=== PATIENT | female | born 1935 | race Caucasian/White ===

== ENCOUNTER → 2016-11-19 | Outpatient (CLI) | payer MEDICARE, BC ==
[2014-01-18 11:10] VITALS: BP 162/69
[~2016-11-19] MED LIST: AMLO5TAB2 PO; ASPI-482 PO; CALC-112 PO; CALC-31 PO; LEVO25TA4 PO; LOVA20TA2 PO; OMEG500C3 PO
--- NOTE | 2016-11-19 14:26 | RAD ---
Exam performed :Left ankle and foot 3 views Clinical indication: Left ankle and foot pain, status post fall one day. Date of service: 11/19/16 . .Comparison:None available Finding: AP, oblique and lateral radiographs of the ankle and foot reveal the osseous structures to be intact and well aligned. There is a old healed fracture of the left first metatarsal. There is a acute nondisplaced fracture neck of fifth metatarsal The joint spaces are well-preserved. The articular margins are smooth. Mild generalized osteopenia There is diffuse soft tissue swelling around the ankle joint. Impression: Nondisplaced fracture neck of fifth metatarsal. Diffuse soft tissue swelling.
== END | disposition home or self-care (01) ==
LOC: DXRADRC 11:15
PROVIDERS: ATTEND Physician Assistant
DX: S92.355A Nondisplaced fracture of fifth metatarsal bone, left foot, initial encounter for closed fracture (principal); M85.872 Other specified disorders of bone density and structure, left ankle and foot; W19.XXXA Unspecified fall, initial encounter; X58.XXXA Exposure to other specified factors, initial encounter; Y93.89 Activity, other specified; Y92.89 Other specified places as the place of occurrence of the external cause; Y99.8 Other external cause status
CPT/HCPCS: 73610; 73630

== ENCOUNTER → 2016-12-17 | Outpatient (CLI) | payer MEDICARE, BC ==
[2014-01-18 11:10] VITALS: BP 162/69
--- NOTE | 2016-12-17 14:54 | RAD ---
Indication follow-up fracture. AP oblique and lateral standing views of the left foot were obtained and are compared to a study 11/19/2016. Oblique, essentially nondisplaced, traumatic fracture through the shaft of the fifth metatarsal is again seen. There is not yet complete bony union but a small amount of callus is noted at the fracture site. No unexpected finding is seen. IMPRESSION: Healing fifth metatarsal fracture
== END | disposition home or self-care (01) ==
LOC: DXRADRC 09:52
PROVIDERS: ATTEND Podiatrist Foot & Ankle Surgery
DX: S92.355D Nondisplaced fracture of fifth metatarsal bone, left foot, subsequent encounter for fracture with routine healing (principal); X58.XXXD Exposure to other specified factors, subsequent encounter
CPT/HCPCS: 73630

== ENCOUNTER → 2017-01-14 | Outpatient (CLI) | payer MEDICARE, BC ==
[2014-01-18 11:10] VITALS: BP 162/69
--- NOTE | 2017-01-14 15:20 | RAD ---
Indication: Follow-up fracture. Technique: 3 views of the left foot are submitted for review. No comparison is available. Findings: There is a healing fracture of the fifth metatarsal shaft distally, callus formation noted although fracture line remains visible. An additional fracture is not identified. There is no dislocation. There is bone demineralization. There is no soft tissue swelling. Impression: Healing fifth metatarsal fracture.
== END | disposition home or self-care (01) ==
LOC: DXRADRC 09:58
PROVIDERS: ATTEND Podiatrist Foot & Ankle Surgery
DX: S92.352D Displaced fracture of fifth metatarsal bone, left foot, subsequent encounter for fracture with routine healing (principal); X58.XXXD Exposure to other specified factors, subsequent encounter
CPT/HCPCS: 73630

== ENCOUNTER → 2017-01-28 | Outpatient (CLI) | payer MEDICARE, BC ==
[2014-01-18 11:10] VITALS: BP 162/69
--- NOTE | 2017-01-28 16:32 | RAD ---
Indication follow-up fracture. AP oblique and lateral standing views of the left foot were obtained. Comparison is made to a study 2 weeks earlier. There is probable mild bony demineralization which appears similar to the previous exam. There has been some slight interval additional healing of the known fifth metatarsal fracture. There is not yet complete bony union. IMPRESSION: Healing fifth metatarsal fracture
== END | disposition home or self-care (01) ==
LOC: DXRADRC 09:54
PROVIDERS: ATTEND Nurse Practitioner Family
DX: S92.352D Displaced fracture of fifth metatarsal bone, left foot, subsequent encounter for fracture with routine healing (principal); X58.XXXD Exposure to other specified factors, subsequent encounter
CPT/HCPCS: 73630

== ENCOUNTER → 2017-02-03 | Outpatient (CLI) | payer MEDICARE ==
[2014-01-18 11:10] VITALS: BP 162/69
--- NOTE | 2017-02-03 14:30 | RAD ---
DATE: February 03, 2017. EXAM: MAMMO LATOYA SCREENING BILATERAL HISTORY: Screening study. COMPARISON: 2014 and 2015 This study was interpreted with the benefit of Computerized Aided Detection (CAD). 2-D digital mammographic views of both breasts were performed in the CC and MLO projections. 3-D digital tomosynthesis of both breasts were performed in the CC and MLO projections and reviewed on a computer workstation. FINDINGS: The breast parenchyma is heterogeneously dense. There are no dominant suspicious masses, suspicious microcalcifications or evidence of architectural distortion. IMPRESSION: No mammographic indicators for malignancy. BI-RADS CATEGORY: 1 NEGATIVE RECOMMENDED FOLLOW-UP: 12M 12 MONTH FOLLOW-UP PQRS compliance statement: Patient information was entered into a reminder system with a target due date February 04, 2018 for the next mammogram. Mammography is a sensitive method for finding small breast cancers, but it does not detect them all and is not a substitute for careful clinical examination. A negative mammogram does not negate a clinically suspicious finding and should not result in delay in biopsying a clinically suspicious abnormality. "Our facility is accredited by the [employer] Mammography Program." The patient's breast density may affect the ability of mammography to detect breast cancer. There are 4 categories of breast density, A, B, C and D. Breast density A means that most of the breast tissue is replaced with adipose tissue and therefore is not dense. Breast density B means that the breast tissue is mildly dense and scattered. Breast density C means that the breast tissue is heterogeneously dense. Breast density D means that the breast tissue is very dense. Breast densities especially C and D may decrease the sensitivity of mammography to detect breast cancer. Therefore, the patient may benefit from 3-D breast mammography (3D breast tomography) as a part of their screening mammogram. Insurance may or may not pay for this additional imaging. The patient's breast density based on today's mammogram is category C.
== END | disposition home or self-care (01) ==
LOC: MAMMO 11:11
PROVIDERS: ATTEND Nurse Practitioner Family
DX: Z12.31 Encounter for screening mammogram for malignant neoplasm of breast (principal)
CPT/HCPCS: 77063; G0202; 77067

== ENCOUNTER 2017-08-14 16:44 | Emergency (ER) | payer MEDICARE ==
[~2017-08-14] VITALS: Ht 157.5 cm; Wt 49.9 kg
[2017-08-14 17:08] VITALS: BP 163/88
--- NOTE | 2017-08-14 17:22 | RAD ---
EXAM: Left knee, 3 views. HISTORY: Pain and swelling. COMPARISON: None. FINDINGS: Frontal, lateral and oblique views of the left knee are obtained. There is lucency with an associated cortical defect within the anterior proximal tibial metaphysis at the level of the tibial tubercle. There is a moderate to large joint effusion. IMPRESSION: 1. Moderate to large joint effusion. 2. Lucency within the anterior proximal tibial metaphysis at the level of the tibial tubercle. There is no overlying soft tissue swelling this region to suggest a nondisplaced fracture. However, this cannot be excluded given the history of a recent fall. Correlate for pain in this location. Electronically signed by: Ching Ball MD (08/14/2017 5:19 PM) [facility]
--- NOTE | 2017-08-14 17:37 | PHYS DOC ---
Past History Past Medical History: Hypertension, Hypothyroid Past Surgical History: Cholecystectomy Alcohol Use: None Drug Use: None Adult General Chief Complaint Chief Complaint: KNEE INJURY HPI HPI 82-year-old female patient states she was tripped on a cord and had a fall and landed on concrete area outside of her daughter home without loss of consciousness. Patient complaining of injury to right knee and lower extremity at 12:30 today without focal neuro deficit. Patient is up-to-date with tetanus immunization and rated her pain 7/10. Patient presented to ER with crutches. Review of Systems Review of Systems Constitutional: Denies fever or chills [] Eyes: Denies change in visual acuity, redness, or eye pain [] HENT: Denies nasal congestion or sore throat [] Respiratory: Denies cough or shortness of breath [] Cardiovascular: No additional information not addressed in HPI [] GI: Denies abdominal pain, nausea, vomiting, bloody stools or diarrhea [] : Denies dysuria or hematuria [] Musculoskeletal: Denies back pain , reports joint pain [] Integument: Denies rash or skin lesions [] Neurologic: Denies headache, focal weakness or sensory changes [] Endocrine: Denies polyuria or polydipsia [] All other systems were reviewed and found to be within normal limits, except as documented in this note. 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 [] HENT: Normocephalic, atraumatic Eyes: PERRLA, EOMI, conjunctiva normal, no discharge. [] Neck: Normal range of motion, no tenderness, supple, no stridor. [] Cardiovascular:Heart rate regular rhythm, no murmur [] Lungs & Thorax: Bilateral breath sounds clear to auscultation [] Skin: Warm, dry, no erythema, no rash. [] Back: No tenderness, no CVA tenderness. [] Extremities: Right knee without deformity, moderate edema and effusion without bone tenderness, tenderness in tibial tuberosity with small contusion, upper root contusion and abrasion in right lower extremity, no neurovascular deficit Neurologic: Alert and oriented X 3, normal motor function, normal sensory function, no focal deficits noted. [] Psychologic: Affect normal, judgement normal, mood normal. [] Current Patient Data Vital Signs Vital Signs Date Time Temp Pulse Resp B/P (MAP) Pulse Ox O2 Delivery O2 Flow Rate FiO2 08/14/17 17:08 101 20 94 EKG EKG [] Radiology/Procedures Radiology/Procedures [] [place] [address] IMAGING REPORT Signed PATIENT: ANGIE OHARA ACCOUNT: [id number] : 1935 LOCATION: ER AGE: 82 SEX: F EXAM STATUS: REG ER ORD. PHYSICIAN: FIFI MARIA MD REASON: knee injury , question able fracture in the x ray PROCEDURE: CT LOWER EXTREMITY WO LEFT EXAM: Left knee CT without contrast. HISTORY: Pain and swelling. TECHNIQUE: Computed tomographic images the left knee are obtained without contrast. *One or more of the following individualized dose reduction techniques were utilized for this examination: 1. Automated exposure control. 2. Adjustment of the mA and/or kV according to patient size. 3. Use of iterative reconstruction technique. COMPARISON: Radiographs obtained on the same date. FINDINGS: There is a nondisplaced fracture involving the proximal tibial metaphysis. This extends from the anterior proximal tibial metaphysis intra-articularly along the lateral aspect of the lateral tibial spine. No tibial plateau depression is seen. There is a moderate to large joint effusion. There is minimal the osteoarthritis. This includes a tiny degenerative subchondral cyst within the medial tibial plateau. No suspicious lytic or sclerotic osseous lesion is seen. The ankle and hindfoot are unremarkable. IMPRESSION: 1. Nondisplaced fracture of the proximal tibial metaphysis with intra-articular extension to the lateral tibial plateau. No tibial plateau depression is seen. 2. Moderate to large joint effusion. 3. Minimal left knee osteoarthritis. Electronically signed by: Ching Dougherty MD (08/14/2017 6:01 PM) [facility] DICTATED AND SIGNED BY: CHING DOUGHERTY MD DATE: 08/14/17 [id number] CC: ADRIAN HAIRSTON APRN; FIFI MARIA MD ~ Course & Med Decision Making Course & Med Decision Making Pertinent Imaging studies reviewed. (See chart for details) Evaluation of patient in ER showed 82-year-old female patient with a fall and injury to right lower extremity. X-ray was questionable for tibial tuberosity fracture. CT of lower extremity showed fracture with extension to joint with moderate amount of knee effusion. On-call orthopedic physician was informed and Dr. Liriano reviewed the x-ray and CT and called back at 1829 and agreed with plan of applying knee immobilizer and using crutches and follow up with his office next week. He was not sure with diagnosis of fracture. Knee immobilizer was applied in ER and patient felt better after fentanyl. Prescription for hydrocodone was given and patient and her family informed about plan of care and needs for follow-up. Dragon Disclaimer Dragon Disclaimer This electronic medical record was generated, in whole or in part, using a voice recognition dictation system. Departure Departure: Impression: Primary Impression: Closed right tibial fracture Additional Impression: Effusion of knee joint right Disposition: 01 HOME, SELF-CARE Condition: IMPROVED Referrals: ADRIAN HAIRSTON APRN (PCP) Patient Instructions: Tibial Fracture, Adult Additional Instructions: Follow-up with construction ironworker orthopedic physician in one or [address] Lazo at Apply ice on the affected area Return to ER if not getting better Scripts Hydrocodone Bit/Acetaminophen (NORCO 5-325 TABLET) 1 Each Tablet 1 TAB PO PRN Q6HRS PRN for PAIN, #20 TAB 0 Refills Prov: FIFI MARIA MD 08/14/17 Problem Qualifiers FIFI MARIA MD August 14, 2017 17:37
--- NOTE | 2017-08-14 18:04 | RAD ---
EXAM: Left knee CT without contrast. HISTORY: Pain and swelling. TECHNIQUE: Computed tomographic images the left knee are obtained without contrast. *One or more of the following individualized dose reduction techniques were utilized for this examination: 1. Automated exposure control. 2. Adjustment of the mA and/or kV according to patient size. 3. Use of iterative reconstruction technique. COMPARISON: Radiographs obtained on the same date. FINDINGS: There is a nondisplaced fracture involving the proximal tibial metaphysis. This extends from the anterior proximal tibial metaphysis intra-articularly along the lateral aspect of the lateral tibial spine. No tibial plateau depression is seen. There is a moderate to large joint effusion. There is minimal the osteoarthritis. This includes a tiny degenerative subchondral cyst within the medial tibial plateau. No suspicious lytic or sclerotic osseous lesion is seen. The ankle and hindfoot are unremarkable. IMPRESSION: 1. Nondisplaced fracture of the proximal tibial metaphysis with intra-articular extension to the lateral tibial plateau. No tibial plateau depression is seen. 2. Moderate to large joint effusion. 3. Minimal left knee osteoarthritis. Electronically signed by: Ching Ball MD (08/14/2017 6:01 PM) [facility]
[2017-08-14] MEDS ORDERED: HYDR-971 PO (18:07)
== END 2017-08-14 18:49 | disposition home or self-care (01) ==
LOC: ER 16:44
DX: S82.191A Other fracture of upper end of right tibia, initial encounter for closed fracture (principal); M25.461 Effusion, right knee; E03.9 Hypothyroidism, unspecified; I10 Essential (primary) hypertension; Z88.2 Allergy status to sulfonamides; Z88.0 Allergy status to penicillin; Z88.5 Allergy status to narcotic agent; W01.0XXA Fall on same level from slipping, tripping and stumbling without subsequent striking against object, initial encounter; Y93.89 Activity, other specified; Y99.8 Other external cause status; Y92.098 Other place in other non-institutional residence as the place of occurrence of the external cause
CPT/HCPCS: 29505; 73562; 73700; 99284

== ENCOUNTER → 2017-10-22 | Outpatient (CLI) | payer MEDICARE ==
[~2017-10-22] MED LIST changes: +HYDR-971 PO
--- NOTE | 2017-10-22 13:18 | RAD ---
Carotid ultrasound, 10/22/2017: HISTORY: Carotid atherosclerosis on screening study Duplex evaluation of the carotid arteries and neck was performed including grayscale, color-flow and spectral Doppler analysis. There is mild intimal thickening in the common carotid arteries with mild smooth plaquing at the bifurcations. There are minimal scattered plaque calcifications. The peak systolic velocity in the right internal carotid artery is 72 cm per sec with an end-diastolic velocity of 31 cm/s and an internal carotid to common carotid artery ratio of 1.3. The peak systolic velocity in the left internal carotid artery is 82 cm/s with an end-diastolic velocity of 31 cm/s and an internal carotid to common carotid artery ratio 1.1. These Doppler findings suggest narrowing in the 0-50 percent diameter range. Antegrade flow is present in both vertebral arteries in the neck. IMPRESSION: Mild atherosclerotic plaquing at both carotid bifurcations with underlying luminal narrowing in the 0-50 percent diameter range bilaterally. Note: Stenosis calculations for CT, MRA and conventional angiography are based upon determination of the distal ICA diameter in accordance with the NASCET methodology. Stenosis calculations for Doppler studies are derived from validated velocity criteria which are known to correlate with NASCET methodology of determining stenosis. Electronically signed by: Mac Coreas MD (10/22/2017 1:15 PM) [facility]
== END | disposition home or self-care (01) ==
LOC: US 10:55
PROVIDERS: ATTEND Physician Assistant Medical
DX: Z13.6 Encounter for screening for cardiovascular disorders (principal); I65.23 Occlusion and stenosis of bilateral carotid arteries; I10 Essential (primary) hypertension; E03.9 Hypothyroidism, unspecified
CPT/HCPCS: 93880

== ENCOUNTER → 2018-03-03 | Outpatient (CLI) | payer MEDICARE ==
[~2018-03-03] MED LIST changes: -AMLO5TAB2 PO; +AMLO5TAB7 PO; +HYDR-3165 PO; -HYDR-971 PO
--- NOTE | 2018-03-04 08:55 | RAD ---
DATE: 03/03/2018 EXAM: MAMMO LATOYA SCREENING BILATERAL HISTORY: Routine screening COMPARISON: 02/03/2017 This study was interpreted with the benefit of Computerized Aided Detection (CAD). Breast Density: HETERO The breast parenchyma is heterogenously dense, which could reduce sensitivity of mammography. Breast parenchyma level C. FINDINGS: 2-D and 3-D tomosynthesis imaging was performed in CC and MLO projections. No new or enlarging breast densities are seen. Benign type calcifications are present. No suspicious microcalcifications have developed. IMPRESSION: Stable mammograms without evidence of malignancy. BI-RADS CATEGORY: 2 BENIGN FINDING(S) RECOMMENDED FOLLOW-UP: 12M 12 MONTH FOLLOW-UP PQRS compliance statement: Patient information was entered into a reminder system with a target due date for the next mammogram. Mammography is a sensitive method for finding small breast cancers, but it does not detect them all and is not a substitute for careful clinical examination. A negative mammogram does not negate a clinically suspicious finding and should not result in delay in biopsying a clinically suspicious abnormality. "Our facility is accredited by the [employer] Mammography Program."
== END | disposition home or self-care (01) ==
LOC: MAMMO 10:11
PROVIDERS: ATTEND Physician Assistant Medical
DX: Z12.31 Encounter for screening mammogram for malignant neoplasm of breast (principal)
CPT/HCPCS: 77063; 77067

== ENCOUNTER → 2021-02-09 | Outpatient (CLI) | payer MEDICARE ==
[~2021-02-09] MED LIST changes: +AMLO-186 PO; -AMLO5TAB7 PO
--- NOTE | 2021-02-09 12:41 | RAD ---
EXAM: AP, lateral and lumbosacral spot views with bilateral oblique views of the lumbar spine DATE: 02/09/2021 9:55 AM INDICATION: Reason: LOW BACK PAIN, OSTEOPOROSIS / Spl. Instructions: / History: COMPARISON: No Prior FINDINGS: 5 nonrib-bearing lumbar-type vertebral bodies. Vertebral body heights are preserved. Mild disc height loss at L1-2, L2-3 and L5-S1. On the oblique views, no definite pars defects are seen. Advanced facet degenerative changes are seen throughout the lumbar spine. Vascular calcifications are seen. Trace anterolisthesis of L3 on L4. Moderate colonic stool content is seen. No small or large bowel dilatation. Cholecystectomy clips are seen. IMPRESSION: 1. Multilevel spondylosis as above. 2. No evidence for acute fracture. 3. Trace anterolisthesis of L3 on L4, likely degenerative. Electronically signed by: Riki Duong MD (02/09/2021 12:39 PM) [id number]
== END ==
LOC: RAD 09:50
PROVIDERS: ATTEND Physician Assistant Medical
DX: M47.816 Spondylosis without myelopathy or radiculopathy, lumbar region (principal); M81.0 Age-related osteoporosis without current pathological fracture
CPT/HCPCS: 72110

== ENCOUNTER → 2021-02-15 | Outpatient (CLI) | payer MEDICARE ==
--- NOTE | 2021-02-15 11:25 | RAD ---
EXAM: DUAL ENERGY X-RAY ABSORPTIOMETRY (DEXA). HISTORY: Postmenopausal screening. FINDINGS: The lowest measured T-score is -2.1 in the right hip, based on a bone mineral density of 0. 693 g/cm^2. Refer to the worksheets for full detail. There has been a 5.7 percent decrease in density of the right hip and 1.6 percent increase in density of the lumbar spine compared to a study performed 01/13/2013. IMPRESSION: 1. Low bone mass. Bone mineral density yields a T-score between -1.0 and -2.5. Fracture risk is incre ased. 2. FRAX report: Not calculated. METHODOLOGY: Dual energy x-ray absorptiometry was performed to measure bone mineral density. The foll owing analysis is based on the 2019 Official Positions of the International Society for Clinical Dens itometry: Measurements of the hips and the average of L1-L4 are preferred. When the spine and/or hip cannot be feasibly measured or interpreted, or in the setting of hyperparathyroidism, distal radial bone minera l density may be measured. The lumbar spine T-score is based on the average bone mineral density of L1-L4. In the setting of art ifact or anatomic abnormality, some lumbar levels may be excluded, and the remaining levels used for calculation. A single lumbar level is not used for diagnosis, and if only a single level is available for assessment, another anatomic site will be used to assign a diagnosis. The hip T-score is based on the bone mineral density measurement of the femoral neck or total proxima l femur of either side, whichever is lowest. Bilateral mean values are not used for diagnosis. The forearm T-score is derived from 33% of the distal radius of the nondominant forearm. Electronically signed by: Ching Ball MD (02/15/2021 11:22 AM) [id number]
== END ==
LOC: DXRAD 10:20
PROVIDERS: ATTEND Physician Assistant Medical
DX: M81.0 Age-related osteoporosis without current pathological fracture (principal); M54.50 Low back pain, unspecified
CPT/HCPCS: 77080